=== PATIENT | male | born 1975 | race Caucasian/White ===

== ENCOUNTER 2021-06-09 23:16 | Emergency (ER) | payer OTHER ==
[~2021-06-09] VITALS: Ht 182.9 cm; Wt 84.8 kg
--- NOTE | 2021-06-09 23:20 | NUR ---
pt bibself c/o rt elbow lac, lower back soreness, and left foot swelling and pain s/p falling down stairs. pt [id number] breathing evenly and unlabored. Pt denies hitting head and ko. md at bedside. pt attached to monitor and pox. Skin warm and dry. will continue to monitor.
--- NOTE | 2021-06-09 23:30 | NUR ---
xray at bedside
[2021-06-09] MEDS ORDERED: TDAP [DIPH/PERTUSSIS/TET] 0.5 ML VIAL IM ONE (23:42)
[2021-06-10] MEDS ORDERED: TDAP [DIPH/PERTUSSIS/TET] 0.5 ML VIAL IM ONE
--- NOTE | 2021-06-10 | NUR ---
md at bedside for sutures
[2021-06-10] MEDS ORDERED: LIDOCAINE 1%-EPI 1:100,000 20 ML VIAL ONE (00:06)
[2021-06-10] MEDS ORDERED: HYDROCODONE/APAP 5/325MG TABLET PO ONE (01:00)
[2021-06-10] MEDS ORDERED: HYDROCODONE/APAP 5/325MG TABLET ONE (01:14)
[2021-06-10] MEDS ORDERED: HYDR-3972 PO (01:17)
--- NOTE | 2021-06-10 01:25 | NUR ---
emt at bedside for wound care
--- NOTE | 2021-06-10 01:26 | NUR ---
xray at bedside
--- NOTE | 2021-06-10 01:29 | NUR ---
Patient discharged to home in stable condition. Written and verbal after care instructions given. Patient verbalizes understanding of instruction. Pt wheeled out via wheel chair to family car
[2021-06-10 01:34] VITALS: BP 120/77
== END 2021-06-10 01:29 | disposition home or self-care (01) ==
LOC: ER 23:23
DX: S92.512A Displaced fracture of proximal phalanx of left lesser toe(s), initial encounter for closed fracture (principal); S51.011A Laceration without foreign body of right elbow, initial encounter; W10.8XXA Fall (on) (from) other stairs and steps, initial encounter; Y93.89 Activity, other specified; Y92.89 Other specified places as the place of occurrence of the external cause; Y99.8 Other external cause status
CPT/HCPCS: 12001; 73630; 90471; 90715; 99283; A6403; J3490